=== PATIENT | female | born 1955 | race Hispanic/Latino ===

== ENCOUNTER 2016-09-27 13:07 | Outpatient (CLI) | payer MEDICAID ==
--- NOTE | 2016-09-27 13:51 | XRay Report ---
BILATERAL HIPS WITH PELVIS, 3 VIEWS: History: Pain. Findings: Bone mineralization is within normal limits. There is no evidence for fracture, dislocation or pelvic diastasis. No advanced joint pathology is detected. The soft tissues are unremarkable. Impression: Unremarkable exam.
== END 2016-09-27 13:08 | disposition home or self-care (01) ==
LOC: XRAY 13:07
PROVIDERS: ATTEND Family Medicine
DX: M25.551 Pain in right hip (principal)
CPT/HCPCS: 73521

== ENCOUNTER 2017-03-07 16:21 | Emergency (ER) | payer MEDICAID ==
[2017-03-07 18:44] LABS: Alanine Aminotransferase 27 units/L (7-56); Albumin 4.3 g/dL (3.9-5); Albumin/Globulin Ratio 1.3 %; Alkaline Phosphatase 76 units/L (35-129); BUN/Creatinine Ratio 20; Blood Urea Nitrogen 12 mg/dL (7-17); Calcium 10.1 mg/dL (8.4-10.2); Carbon Dioxide 27 mmol/L (22-30); Glucose 143 mg/dL (65-100); Lipase 32 units/L (13-60); Total Protein 7.6 g/dL (6.3-8.2)
[2017-03-07 18:45] LABS: Anion Gap 19 mmol/L; Chloride 97.5 mmol/L (98-107); Potassium 4.2 mmol/L (3.6-5.0); Sodium 139 mmol/L (137-145)
[2017-03-07 18:59] LABS: Basophils % (Auto) 1.4 % (0.0-1.8); Eosinophils % (Auto) 2.7 % (0.0-4.3); Hematocrit 42.6 % (30.3-42.9); Hemoglobin 14.3 gm/dl (10.1-14.3); Mean Corpuscular HGB Conc 34 % (30-34); Mean Corpuscular Hemoglobin 29 pg (28-32); Mean Corpuscular Volume 85 fl (79-97); Platelet Count 292 K/mm3 (140-440); Red Blood Count 5.02 M/mm3 (3.65-5.03); Red Cell Distribution Width 13.9 % (13.2-15.2); White Blood Count 7.5 K/mm3 (4.5-11.0)
[2017-03-08 02:30] LABS: Bacteria,Urine 1+ /HPF (Negative); Bilirubin,Urine NEG (Negative); Blood,Urine NEG (Negative); Ketones,Urine NEG (Negative); Leukocyte Esterase,Urine NEG (Negative); Mucus,Urine FEW /HPF; Nitrite,Urine POS (Negative); Protein,Urine <15 mg/dL mg/dL (Negative); Urobilinogen,Urine < 2.0 mg/dL (<2.0)
[2017-03-08] MEDS ORDERED: LEVAQUIN PO ONE (03:45)
[2017-03-08] MEDS ORDERED: NORCO 5/325 PO ONE (03:45)
[2017-03-08] MEDS ORDERED: PHENERGAN PO ONE (03:46)
--- NOTE | 2017-03-08 04:31 | Emergency Department Report ---
ED Abdominal Pain HPI - General Chief Complaint: Abdominal Pain Stated Complaint: ABDOMINAL PAIN Time Seen by Provider: 03/08/17 03:28 Source: patient Mode of arrival: Ambulatory Limitations: No Limitations - History of Present Illness Initial Comments: 61-year-old female with past medical history asthma, diabetes, GERD, hypertension, elevated cholesterol, and leg transposition of the hospital with complaints of abdominal pain 4 days. Patient had an right lower quadrant and generalized abdominal pain for less than days. Pain is steady, with intermittent sharpness. Pain is rated moderate to severe in intensity at times. Positive nausea without vomiting. Patient having diarrhea and had a loose stools after each by mouth intake. Denies fever, recent travel, sick contacts, recent antibiotic use. Positive previous cholecystectomy and previous history of pancreatitis reported. Severity scale (0 -10): 6 - Related Data Home Medications Medication Instructions Recorded Confirmed Last Taken Gabapentin 300 mg PO QHS 09/11/13 03/03/16 01/15/14 Hydrochlorothiazide [HCTZ] 25 mg PO QDAY 09/11/13 03/03/16 01/15/14 Lisinopril [Zestril TAB] 20 mg PO QDAY 09/11/13 03/03/16 01/15/14 Pravastatin Sodium [Pravastatin] 20 mg PO QDAY 09/11/13 03/03/16 01/15/14 glipiZIDE [Glucotrol] 10 mg PO BID 09/11/13 03/03/16 01/15/14 Aspirin [Aspirin TAB] 325 mg PO QDAY 11/08/13 03/03/16 01/15/14 Losartan [Cozaar] 100 mg PO QDAY 03/04/16 03/04/16 03/03/16 13:00 Metformin HCl [Glucophage] 1,000 mg PO BID 03/04/16 03/04/16 03/03/16 13:00 Previous Rx's Medication Instructions Recorded Last Taken Type HYDROcodone/APAP 5-325 [[place] 1 each PO Q6H PRN #30 tablet 03/05/16 Unknown Rx 5-325 mg TAB] Pantoprazole [Protonix TAB] 40 mg PO QDAY #30 tablet 03/05/16 Unknown Rx Ciprofloxacin HCl [Ciprofloxacin 500 mg PO BID #14 tablet 03/08/17 Unknown Rx TAB] HYDROcodone/APAP 5-325 [[place] 1 each PO Q4HR PRN #20 tablet 03/08/17 Unknown Rx 5/325] Promethazine [Phenergan TAB] 25 mg PO Q6HR PRN #20 tab 03/08/17 Unknown Rx Allergies Allergy/AdvReac Type Severity Reaction Status Date / Time codeine Allergy Itching Verified 12/28/13 17:33 ED Review of Systems ROS: Stated complaint: ABDOMINAL PAIN Other details as noted in HPI Comment: All other systems reviewed and negative Other: Constitutional: No fevers chills Eyes: No eye pain visual changes ENT: No ear pain or throat pain Neck: Denies pain Respiratory: Denies cough wheezing shortness of breath Cardiovascular: Denies chest pain, palpitations, syncope GI: As per HPI : Some urinary frequency reported Musculoskeletal: Denies back pain Skin: Denies rash, lesions, erythema Neurologic: Denies headache, numbness, weakness Psychiatric: Denies suicidal ideation, hallucinations ED Past Medical Hx - Past Medical History Hx Hypertension: Yes Hx Congestive Heart Failure: No Hx Diabetes: Yes Hx GERD: Yes Hx Arthritis: Yes Hx Asthma: Yes Hx COPD: No Hx HIV: No Additional medical history: high cholesterol. leg cramps - Surgical History Hx Cholecystectomy: Yes Additional Surgical History: 2x eye surgery. 1 ear surgery - Social History Smoking Status: Never Smoker Substance Use Type: None - Medications Home Medications: Home Medications Medication Instructions Recorded Confirmed Last Taken Type Gabapentin 300 mg PO QHS 09/11/13 03/03/16 01/15/14 History Hydrochlorothiazide [HCTZ] 25 mg PO QDAY 09/11/13 03/03/16 01/15/14 History Lisinopril [Zestril TAB] 20 mg PO QDAY 09/11/13 03/03/16 01/15/14 History Pravastatin Sodium [Pravastatin] 20 mg PO QDAY 09/11/13 03/03/16 01/15/14 History glipiZIDE [Glucotrol] 10 mg PO BID 09/11/13 03/03/16 01/15/14 History Aspirin [Aspirin TAB] 325 mg PO QDAY 11/08/13 03/03/16 01/15/14 History Losartan [Cozaar] 100 mg PO QDAY 03/04/16 03/04/16 03/03/16 13:00 History Metformin HCl [Glucophage] 1,000 mg PO BID 03/04/16 03/04/16 03/03/16 13:00 History HYDROcodone/APAP 5-325 [[place] 1 each PO Q6H PRN #30 tablet 03/05/16 Unknown Rx 5-325 mg TAB] Pantoprazole [Protonix TAB] 40 mg PO QDAY #30 tablet 03/05/16 Unknown Rx Ciprofloxacin HCl [Ciprofloxacin 500 mg PO BID #14 tablet 03/08/17 Unknown Rx TAB] HYDROcodone/APAP 5-325 [[place] 1 each PO Q4HR PRN #20 tablet 03/08/17 Unknown Rx 5/325] Promethazine [Phenergan TAB] 25 mg PO Q6HR PRN #20 tab 03/08/17 Unknown Rx ED Physical Exam - General Limitations: No Limitations - Other Other exam information: General: No limitations, patient is alert in no acute distress Head exam: Atraumatic, normocephalic Eyes exam: Normal appearance ENT: Moist mucous membrane, normal oropharynx Neck exam: Normal inspection, full range of motion, no meningismus nontender Respiratory exam: Clear to auscultation bilateral, no wheezes, rales, crackles Cardiovascular: Normal rate and rhythm, normal heart sounds Abdomen: Soft, nondistended, mild lower abdominal tenderness, with normal bowel sounds, no rebound, or guarding Extremity: Full range of motion normal inspection no deformity Back: Normal Inspection, full range of motion, no tenderness Neurologic: Alert, oriented x3, cranial nerves intact, no motor or sensory deficit Psychiatric: normal affect, normal mood Skin: Warm, dry, intact ED Course Vital Signs 03/07/17 03/08/17 03/08/17 16:26 02:36 04:00 Temperature 98.3 F Pulse Rate 74 77 Respiratory 18 18 12 Rate Blood Pressure 141/83 Blood Pressure 151/73 [Left] O2 Sat by Pulse 98 98 Oximetry - Reevaluation(s) Reevaluation #1: 03/08/17 04:30 Patient treated with [place], Phenergan, and Levaquin ED Medical Decision Making - Lab Data Result diagrams: 03/07/17 18:00 03/07/17 18:00 Lab Results 03/07/17 03/07/17 03/08/17 Range/Units 18:00 18:00 02:21 WBC 7.5 (4.5-11.0) K/mm3 RBC 5.02 (3.65-5.03) M/mm3 Hgb 14.3 (10.1-14.3) gm/dl Hct 42.6 (30.3-42.9) % MCV 85 (79-97) fl MCH 29 (28-32) pg MCHC 34 (30-34) % RDW 13.9 (13.2-15.2) % Plt Count 292 (140-440) K/mm3 Lymph % (Auto) 26.5 (13.4-35.0) % Adams % (Auto) 6.3 (0.0-7.3) % Eos % (Auto) 2.7 (0.0-4.3) % Baso % (Auto) 1.4 (0.0-1.8) % Lymph # 2.0 (1.2-5.4) K/mm3 Adams # 0.5 (0.0-0.8) K/mm3 Eos # 0.2 (0.0-0.4) K/mm3 Baso # 0.1 (0.0-0.1) K/mm3 Seg Neutrophils % 63.1 (40.0-70.0) % Seg Neutrophils # 4.7 (1.8-7.7) K/mm3 Sodium 139 (137-145) mmol/L Potassium 4.2 (3.6-5.0) mmol/L Chloride 97.5 L (98-107) mmol/L Carbon Dioxide 27 (22-30) mmol/L Anion Gap 19 mmol/L BUN 12 (7-17) mg/dL Creatinine 0.6 L (0.7-1.2) mg/dL Estimated GFR > 60 ml/min BUN/Creatinine Ratio 20 % Glucose 143 H (65-100) mg/dL Calcium 10.1 (8.4-10.2) mg/dL Total Bilirubin 0.90 (0.1-1.2) mg/dL AST 24 (5-40) units/L ALT 27 (7-56) units/L Alkaline Phosphatase 76 (35-129) units/L Total Protein 7.6 (6.3-8.2) g/dL Albumin 4.3 (3.9-5) g/dL Albumin/Globulin Ratio 1.3 % Lipase 32 (13-60) units/L Urine Color Yellow (Yellow) Urine Turbidity Clear (Clear) Urine pH 6.0 (5.0-7.0) Ur Specific [place] 1.008 (1.003-1.030) Urine Protein <15 mg/dl (Negative) mg/dL Urine Glucose (UA) Neg (Negative) mg/dL Urine Ketones Neg (Negative) mg/dL Urine Blood Neg (Negative) Urine Nitrite Pos (Negative) Urine Bilirubin Neg (Negative) Urine Urobilinogen < 2.0 (<2.0) mg/dL Ur Leukocyte Esterase Neg (Negative) Urine WBC (Auto) 3.0 (0.0-6.0) /HPF Urine RBC (Auto) 2.0 (0.0-6.0) /HPF U Epithel Cells (Auto) < 1.0 (0-13.0) /HPF Urine Bacteria (Auto) 1+ (Negative) /HPF Urine Mucus Few /HPF - Medical Decision Making Urine has nitrates. Patient will be treated for UTI with fluoroquinolone since also having diarrhea symptoms. Patient offered IV treatment as well as CT scan but declined at this time. Overall think the patient is low risk for appendicitis given a 4 day of symptoms without fever, leukocytosis, or isolated pain at [facility] [place]. Patient given strict instructions to return if symptoms worsen. - Differential Diagnosis diverticulitis, appendicitis, UTI, enteritis, infectious diarrhea Critical Care Time: No Critical care attestation.: If time is entered above; I have spent that time in minutes in the direct care of this critically ill patient, excluding procedure time. ED Disposition Clinical Impression: UTI (urinary tract infection), Enteritis Disposition: - TO HOME OR SELFCARE Is pt being admited?: No Does the pt Need Aspirin: No Condition: Stable Instructions: Urinary Tract Infection in Women (ED), Acute Diarrhea (ED) Additional Instructions: Take the medication as prescribed. You have declined CAT scan at this time. Please return if symptoms worsen and do not improve with treatment. Prescriptions: Ciprofloxacin HCl [Ciprofloxacin TAB] 500 mg PO BID #14 tablet HYDROcodone/APAP 5-325 [[place] 5/325] 1 each PO Q4HR PRN #20 tablet PRN Reason: Pain Promethazine [Phenergan TAB] 25 mg PO Q6HR PRN #20 tab PRN Reason: Nausea Referrals: PRIMARY CARE, [Primary Care Provider] - 2-3 Days Time of Disposition: 04:33
[2017-03-08 04:53] VITALS: BP 158/80
== END 2017-03-08 05:24 | disposition home or self-care (01) ==
LOC: ED 16:21
DX: K52.9 Noninfective gastroenteritis and colitis, unspecified (principal); N39.0 Urinary tract infection, site not specified; E11.9 Type 2 diabetes mellitus without complications; K21.9 Gastro-esophageal reflux disease without esophagitis; J45.909 Unspecified asthma, uncomplicated; M19.90 Unspecified osteoarthritis, unspecified site; Z88.0 Allergy status to penicillin
CPT/HCPCS: 36415; 80053; 81001; 83690; 85025; 87076; 87086; 87186; 99283; Q0169

== ENCOUNTER 2018-07-22 02:45 | Emergency (ER) | payer MEDICAID, SELFPAY ==
[2018-07-22 03:53] VITALS: BP 157/81
== END 2018-07-22 04:07 | disposition left against medical advice (07) ==
LOC: ED 02:45
DX: R20.2 Paresthesia of skin (principal); Z53.21 Procedure and treatment not carried out due to patient leaving prior to being seen by health care provider
CPT/HCPCS: 93005; 93010

== ENCOUNTER 2018-12-14 11:19 | Emergency (ER) | payer MEDICARE ==
--- NOTE | 2018-12-14 11:45 | Event Note ---
ED Screening Note ED Screening Note: pt presents with dizziness that began last night states that she feels like the room is spinning, feels off balance, has nausea no recent illness no POZO ringing in the ears PMHx DM, HTN, HLD, anemia This initial assessment/diagnostic orders/clinical plan/treatment(s) is/are subject to change based on patients health status, clinical progression and re- assessment by fellow clinical providers in the ED. Further treatment and workup at subsequent clinical providers discretion. Patient/guardian urged not to elope from the ED as their condition may be serious if not clinically assessed and managed. Initial orders include: EKG, labs, UA, CT head
[2018-12-14 12:12] VITALS: BP 132/61
[2018-12-14 12:32] LABS: HCG Qualitative,Urine Negative (Negative)
[2018-12-14 12:33] LABS: Bilirubin,Urine NEG (Negative); Blood,Urine NEG (Negative); Color,Urine Straw (Yellow); Protein,Urine <15 mg/dL mg/dL (Negative); Urobilinogen,Urine < 2.0 mg/dL (<2.0)
[2018-12-14 12:37] LABS: Basophils % (Auto) 0.5 % (0.0-1.8); Eosinophils # (Auto) 0.2 K/mm3 (0.0-0.4); Eosinophils % (Auto) 3.7 % (0.0-4.3); Hematocrit 39.7 % (30.3-42.9); Hemoglobin 13.6 gm/dl (10.1-14.3); Lymphocytes # (Auto) 1.1 K/mm3 (1.2-5.4); Lymphocytes % (Auto) 18.7 % (13.4-35.0); Mean Corpuscular HGB Conc 34 % (30-34); Mean Corpuscular Volume 88 fl (79-97); Monocytes # (Auto) 0.4 K/mm3 (0.0-0.8); Monocytes % (Auto) 6.6 % (0.0-7.3); Platelet Count 292 K/mm3 (140-440); Red Blood Count 4.54 M/mm3 (3.65-5.03); Red Cell Distribution Width 13.7 % (13.2-15.2)
[2018-12-14 13:11] LABS: Alanine Aminotransferase 17 units/L (7-56); BUN/Creatinine Ratio 24; Blood Urea Nitrogen 17 mg/dL (7-17); Hemolysis Index 24
--- NOTE | 2018-12-14 15:40 | Cat Scan Report ---
CT head without contrast Clinical history: Dizziness last night, nausea and vomiting today, history of hypertension and diabet es mellitus. FINDINGS: No previous exams are available for comparison. The brain appears to demonstrate appropriat e attenuation for age. There is mild cerebral atrophy. The ventricular system is correspondingly appr opriate in size and configuration. There is no CT evidence of acute intracranial hemorrhage or signif icant mass effect. The visualized paranasal sinuses are clear. There is scattered opacification within the left mastoid air cells. The attic appears pneumatized. All CT scans at this location are performed using the CT do se reduction for [employer] by means of automated exposure control. IMPRESSION: There is no CT evidence of acute intracranial process. There is opacification of the left mastoid air cells. Signer Name: Scott Montano MD Signed: 12/14/2018 3:36 PM Workstation Name: [id number]
[2018-12-14] MEDS ORDERED: NACL 0.9% 1000 ML 1,000 ML IV ONE (20:05)
--- NOTE | 2018-12-14 20:09 | Emergency Department Report ---
ED Dizziness HPI - General Chief Complaint: Dizziness Stated Complaint: DIZZINESS/NAUSEA Time Seen by Provider: 12/14/18 11:42 Source: patient Mode of arrival: Wheelchair Limitations: No Limitations - History of Present Illness Initial Comments: N/V with dizziness since this am. Denies pain. No neuro deficit. Normal BG at home. Complaint: dizziness -: Gradual Timing: sudden onset Description: "room spinning" History of Same: No History of Trauma: No Severity: mild Improves With: nothing Worsens With: nothing Associated Symptoms: denies other symptoms - Related Data Home Medications Medication Instructions Recorded Confirmed Last Taken Gabapentin 300 mg PO QHS 09/11/13 03/03/16 01/15/14 Lisinopril [Zestril TAB] 20 mg PO QDAY 09/11/13 03/03/16 01/15/14 Pravastatin Sodium [Pravastatin] 20 mg PO QDAY 09/11/13 03/03/16 01/15/14 glipiZIDE [Glucotrol] 10 mg PO BID 09/11/13 03/03/16 01/15/14 hydroCHLOROthiazide [HCTZ] 25 mg PO QDAY 09/11/13 03/03/16 01/15/14 Aspirin 325 mg PO QDAY 11/08/13 03/03/16 01/15/14 Losartan [Cozaar] 100 mg PO QDAY 03/04/16 03/04/16 03/03/16 13:00 Metformin HCl [Glucophage] 1,000 mg PO BID 03/04/16 03/04/16 03/03/16 13:00 Previous Rx's Medication Instructions Recorded Last Taken Type HYDROcodone/APAP 5-325 [[place] 1 each PO Q6H PRN #30 tablet 03/05/16 Unknown Rx 5-325 mg TAB] Pantoprazole [Protonix TAB] 40 mg PO QDAY #30 tablet 03/05/16 Unknown Rx Ciprofloxacin HCl [Ciprofloxacin 500 mg PO BID #14 tablet 03/08/17 Unknown Rx TAB] HYDROcodone/APAP 5-325 [[place] 1 each PO Q4HR PRN #20 tablet 03/08/17 Unknown Rx 5/325] Promethazine [Phenergan TAB] 25 mg PO Q6HR PRN #20 tab 03/08/17 Unknown Rx Meclizine [Antivert] 25 mg PO TID PRN #15 tablet 12/14/18 Unknown Rx Allergies Allergy/AdvReac Type Severity Reaction Status Date / Time codeine Allergy Itching Verified 12/14/18 11:20 ED Review of Systems ROS: Stated complaint: DIZZINESS/NAUSEA Other details as noted in HPI Comment: All other systems reviewed and negative Constitutional: denies: chills Eyes: denies: eye pain ENT: denies: ear pain, throat pain Gastrointestinal: denies: nausea, vomiting Genitourinary: denies: urgency, dysuria Musculoskeletal: denies: back pain Skin: denies: rash Neurological: vertigo. denies: headache ED Past Medical Hx - Past Medical History Hx Hypertension: Yes Hx Congestive Heart Failure: No Hx Diabetes: Yes Hx GERD: Yes Hx Arthritis: Yes Hx Asthma: Yes Hx COPD: No Hx HIV: No Additional medical history: high cholesterol. leg cramps - Surgical History Hx Cholecystectomy: Yes Additional Surgical History: 2x eye surgery. 1 ear surgery - Social History Smoking Status: Never Smoker Substance Use Type: None - Medications Home Medications: Home Medications Medication Instructions Recorded Confirmed Last Taken Type Gabapentin 300 mg PO QHS 09/11/13 03/03/16 01/15/14 History Lisinopril [Zestril TAB] 20 mg PO QDAY 09/11/13 03/03/16 01/15/14 History Pravastatin Sodium [Pravastatin] 20 mg PO QDAY 09/11/13 03/03/16 01/15/14 History glipiZIDE [Glucotrol] 10 mg PO BID 09/11/13 03/03/16 01/15/14 History hydroCHLOROthiazide [HCTZ] 25 mg PO QDAY 09/11/13 03/03/16 01/15/14 History Aspirin 325 mg PO QDAY 11/08/13 03/03/16 01/15/14 History Losartan [Cozaar] 100 mg PO QDAY 03/04/16 03/04/16 03/03/16 13:00 History Metformin HCl [Glucophage] 1,000 mg PO BID 03/04/16 03/04/16 03/03/16 13:00 History HYDROcodone/APAP 5-325 [[place] 1 each PO Q6H PRN #30 tablet 03/05/16 Unknown Rx 5-325 mg TAB] Pantoprazole [Protonix TAB] 40 mg PO QDAY #30 tablet 03/05/16 Unknown Rx Ciprofloxacin HCl [Ciprofloxacin 500 mg PO BID #14 tablet 03/08/17 Unknown Rx TAB] HYDROcodone/APAP 5-325 [[place] 1 each PO Q4HR PRN #20 tablet 03/08/17 Unknown Rx 5/325] Promethazine [Phenergan TAB] 25 mg PO Q6HR PRN #20 tab 03/08/17 Unknown Rx Meclizine [Antivert] 25 mg PO TID PRN #15 tablet 12/14/18 Unknown Rx ED Physical Exam - General Limitations: No Limitations General appearance: alert, in no apparent distress - Head Head exam: Present: atraumatic, normocephalic - Eye Eye exam: Present: normal appearance, PERRL, EOMI Pupils: Present: normal accommodation - ENT ENT exam: Present: normal exam, normal orophraynx - Neck Neck exam: Present: normal inspection - Respiratory Respiratory exam: Present: normal lung sounds bilaterally - Cardiovascular Cardiovascular Exam: Present: regular rate, normal rhythm - GI/Abdominal GI/Abdominal exam: Present: soft, normal bowel sounds - Back Exam Back exam: Present: normal inspection - Neurological Exam Neurological exam: Present: alert, oriented X3, CN II-XII intact - Psychiatric Psychiatric exam: Present: normal affect - Skin Skin exam: Present: warm ED Course Vital Signs 12/14/18 12/14/18 11:43 20:44 Temperature 97.4 F L Pulse Rate 102 H Respiratory 18 18 Rate Blood Pressure 132/61 O2 Sat by Pulse 99 Oximetry ED Medical Decision Making - Lab Data Result diagrams: 12/14/18 12:12 12/14/18 12:12 Critical care attestation.: If time is entered above; I have spent that time in minutes in the direct care of this critically ill patient, excluding procedure time. ED Disposition Clinical Impression: Dizziness Disposition: DC-01 TO HOME OR SELFCARE Is pt being admited?: No Does the pt Need Aspirin: No Condition: Stable Instructions: Dizziness (ED) Prescriptions: Meclizine [Antivert] 25 mg PO TID PRN #15 tablet PRN Reason: Vertigo Referrals: ELENITA PASCUAL MD [Primary Care Provider] - 3-5 Days
== END 2018-12-14 21:48 | disposition home or self-care (01) ==
LOC: ED 11:19
DX: R42 Dizziness and giddiness (principal); R11.0 Nausea; I10 Essential (primary) hypertension; E11.9 Type 2 diabetes mellitus without complications; K21.9 Gastro-esophageal reflux disease without esophagitis; M19.90 Unspecified osteoarthritis, unspecified site; J45.909 Unspecified asthma, uncomplicated; E78.00 Pure hypercholesterolemia, unspecified; Z90.49 Acquired absence of other specified parts of digestive tract; Z98.890 Other specified postprocedural states; Z79.899 Other long term (current) drug therapy; Z88.5 Allergy status to narcotic agent
CPT/HCPCS: 36415; 70450; 80053; 81001; 81025; 82962; 83735; 84100; 85025; 93005; 93010; 96360; 96361; 99284; J7030